=== PATIENT | male | born 1955 | race Caucasian/White ===

== ENCOUNTER → 2019-09-06 13:45 | Outpatient (CLI) | payer BC, SELFPAY ==
[2019-09-06 17:18] LABS: Prostate Specific Ag Screen 2.8 ng/mL (0.0-4.0)
== END ==
PROVIDERS: Visit Provider Urology
DX: Z12.5 Encounter for screening for malignant neoplasm of prostate (principal)
CPT/HCPCS: 36415; G0103

== ENCOUNTER → 2020-09-07 13:32 | Outpatient (CLI) | payer BC, SELFPAY ==
[2020-09-07 15:16] LABS: Prostate Specific Ag, Diagnost 2.28 ng/ml (0.0-4.0)
== END ==
PROVIDERS: Visit Provider Urology
DX: N40.0 Benign prostatic hyperplasia without lower urinary tract symptoms (principal)
CPT/HCPCS: 36415; 84153

== ENCOUNTER → 2021-09-16 14:24 | Outpatient (CLI) | payer BC, SELFPAY ==
[2021-09-16 16:33] LABS: Prostate Specific Ag Screen 3.1 ng/ml (0.0-4.0)
== END ==
PROVIDERS: Visit Provider Urology
DX: Z12.5 Encounter for screening for malignant neoplasm of prostate (principal)
CPT/HCPCS: G0103